=== PATIENT | male | born 1975 | race Caucasian/White ===

== ENCOUNTER 2025-07-31 13:23 | Emergency (ER) | payer OTHER, SELFPAY ==
--- NOTE | ~2025-07-31 | CT_ITS ---
EXAMINATION: CT cervical spine wo con DATE: 07/31/2025 15:56 INDICATION: Left neck pain post seizure one week prior TECHNIQUE: Computed tomography (CT) of the cervical spine was performed without intravenous contrast. Automated exposure control and iterative reconstruction technique were employed. The dose-length product was 304.53 mGy-cm. COMPARISON: None FINDINGS: Mild reversal of the normal cervical lordosis9 which could be positional or due to muscle spasm. Vertebral body heights are normal. No fracture. Mild disc height loss at C5-C6 and C6-C7. Disc bulges contribute to mild central canal stenosis at both levels. Multilevel mild bilateral cervical uncovertebral osteoarthritis. There is also multilevel mild bilateral cervical facet osteoarthritis. Minimal neural foraminal stenosis on the right at C5-C6. Cervical soft tissues are unremarkable. Mild emphysema the apices of lungs with mild right apical pleural-parenchymal scarring. IMPRESSION: 1. Mild lower cervical spondylosis. No acute osseous abnormality. Reviewed, dictated and finalized at location A.
--- NOTE | ~2025-07-31 | XR_ITS ---
EXAMINATION: XR shoulder LT min 2V DATE: 07/31/2025 15:17 INDICATION: Left shoulder pain TECHNIQUE: AP internally and externally rotated, AP oblique externally rotated and transscapular Y views of the left shoulder were obtained. COMPARISON: None FINDINGS: Normal alignment. No fracture. Glenohumeral joint is normal. Acromioclavicular joint is normal. Soft tissues are unremarkable. Visualized portion of the left lung are clear with no pleural effusion or pneumothorax. IMPRESSION: Negative left shoulder radiographs. Reviewed, dictated and finalized at location A.
[2025-07-31 13:33] VITALS: BP 118/69; PULSE 79; RESP 18; TEMP 36.6; O2SAT 100
--- NOTE | 2025-07-31 13:41 | ECG_ITS ---
Test Date: 2025-07-31 13:47:11 Measurements Intervals [place] Rate: 72 P: 58 ME: 126 QRS: 71 QRSD: 113 T: 73 QT: 374 QTc: 411 Interpretive Statements SINUS RHYTHM INCOMPLETE RIGHT BUNDLE BRANCH BLOCK ST ELEVATION IN ANT/INF LEADS, PROBABLY EARLY REPOLARIZATION PEAKED T WAVES- CONSIDER HYPERKALEMIA BASELINE ARTIFACT- AVR, AVL, AVF ABNORMAL ECG No previous ECG available for comparison Electronically Signed On 07-31-2025 16:06:12 CDT by Hernando Jimenez D.O.
--- NOTE | 2025-07-31 15:58 | ED.EXTPRO ---
HPI - Extremity Problem General Chief complaint: Extremity Problem,Nontraumatic Stated complaint: L shoulder pain Time Seen by Provider: 07/31/25 14:31 Source: patient Mode of arrival: ambulatory Limitations: no limitations History of Present Illness HPI Narrative: Patient is a 49-year-old male, with PMH of CAD s/p stent, epilepsy, who presents the ED with report of left shoulder/neck pain. Patient reports he had a seizure on Friday. Significant other bedside reports full tonic clonic activity which is typical of his seizures. Patient reports he has been having pain throughout his left shoulder and left-sided neck since then. Has not taken anything for pain. Reports pain is worse with movements. Did report having an episode of chest pain after the seizure activity which resolved with his home nitroglycerin. He denies having significant chest pain since then. Denies shortness of breath. Denies numbness. Denies head injury from the seizure. Related Data Allergies Allergy/AdvReac Type Severity Reaction Status Date / Time promethazine (From Phenergan) Allergy Itching Verified 07/31/25 13:40 Penicillins AdvReac Swelling Verified 07/31/25 13:40 of Lip/Tongue/Throat Review of Systems Review of Systems: All systems reviewed & are unremarkable except as noted in HPI. All systems reviewed & are unremarkable except as noted in HPI and below Exam Narrative: GENERAL: Well appearing, thin, non-toxic, in no acute distress. HEAD: Normocephalic, atraumatic. RESPIRATORY: Airway patent, respirations nonlabored. Clear to auscultation bilaterally, no rales, rhonchi, wheezing. CARDIOVASCULAR: Regular rate and rhythm without murmurs, rubs, or gallops. Radial pulses intact. MUSCULOSKELETAL: Moves all extremities. No gross deformities. Limited range of motion of left shoulder flexion and abduction due to pain. Tenderness to palpation over left anterior shoulder joint and extending into superior shoulder/ac region, L lower trapezius region. Sensation intact. SKIN: Warm, dry, normal color. NEURO: A&O X3. Speech clear. Cranial nerves II-XII grossly intact. Steady gait. No ataxic movements. No focal deficits. No weakness or sensory changes of left upper extremity. PSYCHIATRIC: Appropriate mood and affect. Normal interaction. Course Vital Signs Vital signs: Vital Signs Temperature 97.8 F 07/31/25 13:33 Pulse Rate 79 07/31/25 13:33 Respiratory Rate 18 07/31/25 13:33 Blood Pressure 118/69 07/31/25 13:33 Pulse Oximetry 100 07/31/25 13:33 Oxygen Delivery Room Air 07/31/25 13:33 Temperature 97.8 F 07/31/25 13:33 Pulse Rate 61 07/31/25 16:15 Respiratory Rate 18 07/31/25 16:15 Blood Pressure 123/98 H 07/31/25 16:15 Pulse Oximetry 100 07/31/25 16:15 Oxygen Delivery Room Air 07/31/25 13:33 MDM - Extremity (Nontraumatic) MDM Narrative Medical decision making narrative: Patient presented to ED with several day history of left shoulder/neck pain after having a seizure. History of epilepsy. Vital signs are stable upon arrival. Symptoms seem most consistent with musculoskeletal etiology, reproducible pain/tenderness on exam, worse with movement, history of recent muscular exertion/activity r/t seizure. Patient is neurovascularly intact. He does have history of cardiac disease however and reported having episode of chest pain after this seizure as well. Will obtain cardiac testing. EKG with some nonspecific ST changes, likely early repolarization. Incomplete right bundle-branch block. No records to compare to. Left shoulder x-ray negative. CT cervical spine showing mild spondylosis changes, no acute findings. Laboratory studies unremarkable. Troponin undetectable Patient given Flexeril and Toradol in the ED with some improvement. Discussed high likelihood of musculoskeletal etiology. Will discharge on muscle relaxers, lidocaine patches, discussed rice therapy. Patient advised to follow-up with PCP for further evaluation. Given strict return precautions. Medical Records Attestation: I reviewed the patient's medical records. Lab Data Attestation: I reviewed the patient's lab results. 07/31/25 17:00 07/31/25 17:00 Labs: Lab Results 07/31/25 Range/Units 17:00 WBC 7.4 (4.5-10.0) K/mm3 RBC 5.01 (4.6-6.20) M/mm3 Hgb 15.5 (14.0-18.0) g/dL Hct 46.5 (42.0-52.0) % MCV 92.8 (80-100) fl MCH 30.9 (26-34) pg MCHC 33.3 (32-36) g/dl RDW 14.3 (11.5-14.5) % Plt Count 286 (150-375) k/mm3 MPV 9.8 (7.4-10.4) fl Immature Gran % (Auto) 0.1 (0-0.5) % Neut % (Auto) 59.0 (45.5-73.1) % Lymph % (Auto) 29.5 (18.3-44.2) % [place] % (Auto) 6.0 (2.6-8.5) % Eos % (Auto) 4.7 H (0-4.4) % Baso % (Auto) 0.7 (0.2-1.2) % Lymph # (Auto) 2.18 (0.9-3.2) K/mm3 [place] # (Auto) 0.4 (0.1-0.6) K/mm3 Eos # (Auto) 0.4 H (0-0.3) K/mm3 Baso # (Auto) 0.1 (0.0-0.1) K/mm3 Abs Immat Gran (auto) 0.01 (0.00-0.031) K/mm3 Absolute Neuts (auto) 4.4 (1.3-6.7) K/mm3 Absolute Nucleated RBC 0.000 (0.0-0.012) K/mm3 Nucleated RBC % 0.0 (0.0-0.2) % PT 13.5 (11.1-14.7) Seconds INR 1.0 APTT 29.0 (22.3-36.8) Seconds Sodium 138 (137-145) mmol/L Potassium 4.1 (3.4-5.0) mmol/L Chloride 105 (98-107) mmol/L Carbon Dioxide 29 (22-30) mmol/L Anion Gap 4 (4-12) mmol/L BUN 18 (9-20) mg/dL Creatinine 0.98 (0.7-1.3) mg/dL Estim Creat Clear Calc 72 ml/min Estimated GFR > 60 (59 - ) Glucose 91 (65-110) mg/dL Calcium 9.0 (8.4-10.2) mg/dL Troponin I < 0.012 (0.000-0.034) ng/mL Imaging Data Attestation: I personally reviewed and interpreted this imaging study as follows: Radiologist's impression: ITS Impressions Shoulder X-Ray 07/31/25 15:27 IMPRESSION: Negative left shoulder radiographs. Cervical Spine CT 07/31/25 16:37 IMPRESSION: 1. Mild lower cervical spondylosis. No acute osseous abnormality. ECG Data EKG #1: Attestation EKG: I personally reviewed and interpreted this ECG as follows: ECG completion date: 07/31/25 ECG completion time: 13:47 EKG Interpretation: normal rate (72), sinus rhythm, non-specific ST changes (Likely early repolarization) and RBBB (Incomplete) Discharge Plan Discharge Clinical Impression: Strain of cervical portion of left trapezius muscle Strain of left shoulder Qualifiers: Encounter type: initial encounter Qualified Code(s): S46.912A - Strain of unspecified muscle, fascia and tendon at shoulder and upper arm level, left arm, initial encounter Patient Disposition: Home Condition: Stable Instructions: Antibiotic Form, Cervical Strain (ED), Shoulder Sprain (ED), P.R.I.C.E. Treatment (ED) Additional Instructions: Continue Ibuprofen as needed for pain. You may use ice/heat, lidocaine patches to area of pain. Take muscle relaxers as needed and prescribed. Recommend taking these at night as they may cause sedation. Do not drive, operate heavy machinery, drink alcohol while on muscle relaxers as this may cause further sedation. Follow-up with your primary care doctor for further evaluation. Return to the ED if you experience worsening or severe pain, recurrent injury, numbness in arms or legs, chest pain, difficulty breathing, unable to keep down food or drink, or any other symptoms of concern. Patient Language: Gabonese Prescriptions: New methocarbamol 750 mg tablet 1,500 mg PO TID PRN (Reason: muscle spasm) Qty: 15 0RF lidocaine 5 % adhesive patch,medicated 1 patch topical DAILY Qty: 15 0RF Rx Instructions: leave on most painful area for up to 12 hrs ibuprofen 800 mg tablet 800 mg PO TID PRN (Reason: pain) Qty: 30 0RF Follow-up/Referrals: PHYSICIAN NOT ON STAFF,NONSTAFF [Primary Care Provider] Time of Disposition: 18:17
[2025-07-31] MEDS: CYCLOBENZAPRINE HCL 5 MG TABLET PO (16:05)
[2025-07-31 16:15] VITALS: BP 123/98; PULSE 61; RESP 18; O2SAT 100
[2025-07-31 17:06] LABS: Hematocrit 46.5 % (42.0-52.0); Hemoglobin 15.5 g/dL (14.0-18.0); Immature Granulocyte Percent A 0.1 % (0-0.5); Lymphocytes Absolute Auto 2.18 K/mm3 (0.9-3.2); Mean Corpuscular HGB Conc 33.3 g/dl (32-36); Mean Corpuscular Hemoglobin 30.9 pg (26-34); Mean Corpuscular Volume 92.8 fl (80-100); Nucleated Red Blood Cells Absolute Auto 0.000 K/mm3 (0.0-0.012); Nucleated Red Blood Cells Perc 0.0 % (0.0-0.2); Platelet Count Result 286 k/mm3 (150-375); Red Blood Count 5.01 M/mm3 (4.6-6.20); White Blood Count 7.4 K/mm3 (4.5-10.0)
[2025-07-31 17:20] LABS: Anion Gap 4 mmol/L (4-12); Blood Urea Nitrogen 18 mg/dL (9-20); Calcium 9.0 mg/dL (8.4-10.2); Carbon Dioxide 29 mmol/L (22-30); Chloride 105 mmol/L (98-107); Estimated CRCL calculation 72 ml/min; Estimated Glomerular Filt Rate > 60; Glucose 91 mg/dL (65-110); INR 1.0; Potassium 4.1 mmol/L (3.4-5.0); Prothrombin Time 13.5 Seconds (11.1-14.7); Sodium 138 mmol/L (137-145)
[2025-07-31 17:21] LABS: Partial Thromboplastin Time 29.0 Seconds (22.3-36.8)
[2025-07-31 17:31] LABS: Troponin I < 0.012 ng/mL (0.000-0.034)
[2025-07-31] MEDS: KETOROLAC (*BKC) 60 MG/2 ML VIAL IM (18:21)
== END 2025-07-31 18:35 | disposition home or self-care (01) ==
PROVIDERS: Emergency Provider Physician Assistant
DX: S46.912A Strain of unspecified muscle, fascia and tendon at shoulder and upper arm level, left arm, initial encounter (principal); G40.909 Epilepsy, unspecified, not intractable, without status epilepticus; I25.10 Atherosclerotic heart disease of native coronary artery without angina pectoris; Z95.5 Presence of coronary angioplasty implant and graft; X58.XXXA Exposure to other specified factors, initial encounter
CPT/HCPCS: 36415; 72125; 73030; 80048; 84484; 85025; 85610; 85730; 93005; 96372; 99284; A9270; J1885